=== PATIENT | female | born 1930 | race Caucasian/White ===

== ENCOUNTER 2017-08-04 22:56 | Emergency (ER) | payer MEDICARE, OTHER, MEDICAID ==
--- NOTE | 2017-08-04 23:07 | EDM.PDOC ---
ED HPI GENERAL MEDICAL PROBLEM - General Chief Complaint: Head Injury Stated Complaint: PT FELL Time Seen by Provider: 08/04/17 23:03 - History of Present Illness INITIAL COMMENTS - FREE TEXT/NARRATIVE: HISTORY AND PHYSICAL: History of present illness: Patient is an 79-year-old female from the Alzheimer's unit at [facility] who presents status post unwitnessed fall with sustained a small wound to her left head there is no other reported injury or concern history and physical are limited due to patient's baseline. Review of systems: As per history of present illness and below otherwise all systems reviewed and negative. Past medical history: As per history of present illness and as reviewed below otherwise noncontributory. Surgical history: As per history of present illness and as reviewed below otherwise noncontributory. Social history: No reported history of drug or alcohol abuse. Family history: As per history of present illness and as reviewed below otherwise noncontributory. Physical exam: HEENT: Patient has approximately 1.5 cm superficial laceration to her left face with good hemostasis no step-off no depression, normocephalic, pupils reactive, negative for conjunctival pallor or scleral icterus, mucous membranes moist, throat clear, neck supple, nontender, trachea midline. Lungs: Clear to auscultation, breath sounds equal bilaterally, chest nontender. Heart: S1S2, regular, negative for clicks, rubs, or JVD. Abdomen: Soft, nondistended, nontender. Negative for masses or hepatosplenomegaly. Negative for costovertebral tenderness. Pelvis: Stable nontender. Genitourinary: Deferred. Rectal: Deferred. Extremities: Atraumatic, negative for cords or calf pain. Neurovascular unremarkable. Neuro: Awake, alert, follows commands moves all extremities limited grossly nonfocal exam baseline per [facility] Diagnostics: None Therapeutics: Wound was irrigated copiously amounts of saline and Steri-Stripped bacitracin applied Impression: #1 head injury with superficial laceration Definitive disposition and diagnosis as appropriate pending reevaluation and review of above. - Related Data Allergies Allergy/AdvReac Type Severity Reaction Status Date / Time erythromycin lactobionate Allergy Cannot Verified 10/01/14 09:45 [From Erythrocin] Remember lactose Allergy Abdominal Verified 10/01/14 09:45 Cramps meperidine HCl [From Demerol] Allergy Cannot Verified 10/01/14 09:45 Remember oxytetracycline Allergy Cannot Verified 10/01/14 09:45 [From Terramycin] Remember oxytetracycline HCl Allergy Cannot Verified 10/01/14 09:45 [From Terramycin] Remember sulfamethoxazole Allergy Cannot Verified 10/01/14 09:45 Remember Home Meds: Home Meds Acetaminophen [Tylenol] 650 mg PO Q4H PRN 08/28/13 [History] Bisacodyl [Dulcolax] 10 mg RC ASDIRECTED PRN 08/28/13 [History] LORazepam 0.5 mg PO BID 08/28/13 [History] LORazepam [Ativan] 0.5 mg PO Q6H PRN 08/28/13 [History] Latanoprost [Xalatan 0.005% Ophth Soln] 1 drop EYEBOTH BEDTIME 08/28/13 [History ] Loperamide [Imodium AD] 2 mg PO ASDIRECTED PRN 08/28/13 [History] Mag Hydrox/Al Hydrox/Simeth [Maalox Maximum Strength Susp] 30 ml PO DAILY PRN [History] Meloxicam [Mobic] 7.5 mg PO DAILY 08/28/13 [History] Memantine [Namenda] 10 mg PO DAILY 08/28/13 [History] QUEtiapine Fumarate [Seroquel] 200 mg PO BID 08/28/13 [History] Rivastigmine [Exelon] 9.5 mg TRDERM DAILY 08/28/13 [History] Acetaminophen/HYDROcodone [[place] 325-5 MG] 1 tab PO Q4H PRN #60 tablet 08/31/13 [Rx] Calcium Citrate/Vitamin D3 [Calcium Citrate - Vit D Caplet] 1 each PO DAILY [History] Multivitamin [Multivitamins] 1 each PO DAILY 08/31/13 [History] Hydrocodone/Acetaminophen [[place] 5-325] 1 each PO QID 09/09/13 [History] Brimonidine [Alphagan P 0.1% Ophth Soln] 1 drop EYEBOTH BID 09/11/13 [History] PARoxetine HCl [Paxil] 20 mg PO DAILY #30 tablet 09/14/13 [Rx] Memantine HCl [Namenda] 10 mg PO BID 12/15/13 [History] Past Medical History Other Cardiovascular History: hypotension ED ROS GENERAL - Review of Systems Review Of Systems: ROS reveals no pertinent complaints other than HPI. ED EXAM, HEAD INJURY - Physical Exam Exam: See Below (See dictation) Departure - Departure Time of Disposition: 23:06 Disposition: Home, Self-Care 01 Condition: Good Clinical Impression: Head injury, Laceration - Discharge Information Additional Instructions: The following information is given to patients seen in the emergency department who are being discharged to home. This information is to outline your options for follow-up care. We provide all patients seen in our emergency department with a follow-up referral. The need for follow-up, as well as the timing and circumstances, are variable depending upon the specifics of your emergency department visit. If you don't have a primary care physician on staff, we will provide you with a referral. We always advise you to contact your personal physician following an emergency department visit to inform them of the circumstance of the visit and for follow-up with them and/or the need for any referrals to a consulting specialist. The emergency department will also refer you to a specialist when appropriate. This referral assures that you have the opportunity for followup care with a specialist. All of these measure are taken in an effort to provide you with optimal care, which includes your followup. Under all circumstances we always encourage you to contact your private physician who remains a resource for coordinating your care. When calling for followup care, please make the office aware that this follow-up is from your recent emergency room visit. If for any reason you are refused follow-up, please contact the [facility] emergency department at and asked to speak to the emergency department charge nurse. Wound care follow-up primary medical doctor 24-48 hours return as needed as discussed
[2017-08-05 00:06] VITALS: BP 135/56
== END 2017-08-05 | disposition home or self-care (01) ==
LOC: MW.ED 22:56
DX: S01.81XA Laceration without foreign body of other part of head, initial encounter (principal); G30.9 Alzheimer's disease, unspecified; F02.80 Dementia in other diseases classified elsewhere, unspecified severity, without behavioral disturbance, psychotic disturbance, mood disturbance, and anxiety; Y92.129 Unspecified place in nursing home as the place of occurrence of the external cause; W19.XXXA Unspecified fall, initial encounter; Z79.899 Other long term (current) drug therapy
CPT/HCPCS: 99283